=== PATIENT | female | born 1950 | race Caucasian/White ===

== ENCOUNTER 2021-12-06 16:17 | Inpatient (IN) ==
[2021-12-06 16:47] LABS: iSTAT Creatinine 0.6 mg/dl (0.6-1.3); iSTAT Hemoglobin 13.6 g/dl (12.0-16.0); iSTAT Ionized Calcium 1.14 mmol/l (1.12-1.32)
[2021-12-06 16:59] LABS: Hematocrit (blood only) 42.9 % (37-47); Hemoglobin 14.4 g/dL (12.0-16.0); Mean Corpuscular Hemoglobin 30.4 pg (25-34); Mean Corpuscular Hgb Conc 33.6 g/dL (32-36); Mean Corpuscular Volume 90.7 fL (80-100); RDW Coefficient of Variation 13.5 % (11.5-14.5); RDW Standard Deviation 44.7 fL (36.4-46.3); Red Blood Count 4.73 M/uL (4.2-5.4); White Blood Count 14.98 K/uL (4.8-10.8)
--- NOTE | 2021-12-06 17:00 | XRay Report ---
SINGLE VIEW CHEST CLINICAL HISTORY: Dyspnea. FINDINGS: An AP, portable, upright chest radiograph is obtained. No prior studies are available for c omparison at the time of dictation. The examination is mildly degraded by portable technique and suleiman ent rotation. The heart is enlarged noting atherosclerotic calcification of the thoracic aorta. The pulmonary vasculature is noncongested. Nonspecific interstitial thickening is likely chronic. There i s bibasilar scarring/atelectasis. No airspace consolidation or large pleural effusion is identified. No pneumothorax is seen. The skeletal structures are osteopenic. The bony thorax is grossly intact. A dvanced arthritic change is seen in the shoulders, right greater than left. IMPRESSION: Cardiomegaly with no acute cardiopulmonary abnormality. ACT 112: Negative or not required by law. Electronically signed by: Lucius Healy M.D. 12/06/2021 4:58 PM
[2021-12-06 17:06] LABS: Troponin I < 0.03 ng/ml (0-0.04)
[2021-12-06 17:07] LABS: Basophils # (auto) 0.03 K/uL (0-0.2); Basophils % (auto) 0.2 %; Eosinophils # (auto) 0.17 K/uL (0-0.5); Eosinophils % (auto) 1.1 %; Immature Granulocytes # (auto) 0.14 K/uL (0.00-0.02); Immature Granulocytes % (auto) 0.9 %; Lymphocytes # (auto) 2.58 K/uL (1.2-3.4); Lymphocytes % (auto) 17.2 %; Mean Platelet Volume 10.4 fL (7.4-10.4); Monocytes # (auto) 0.88 K/uL (0.11-0.59); Monocytes % (auto) 5.9 %; Neutrophils # (auto) 11.18 K/uL (1.4-6.5); Neutrophils % (auto) 74.7 %; Platelet Count 259 K/uL (130-400)
[2021-12-06] MEDS ORDERED: KETOROLAC TROMETHAMINE 15 MG/ML VIAL IV ONE (17:09)
[2021-12-06] MEDS ORDERED: SODIUM CHLORIDE 0.9% 1000ML 500 ML IV ONE (17:09)
[2021-12-06] MEDS ORDERED: ONDANSETRON INJ 2 MG/ML 2 ML VIAL IV STA (17:09)
--- NOTE | 2021-12-06 17:12 | Emergency Department Note ---
History of Present Illness General Chief complaint: Shortness of Breath/Dyspnea Stated complaint: SOB, Chest Pain Time Seen by Provider: 12/06/21 17:00 Source: patient Mode of arrival: ambulatory Limitations: no limitations History of Present Illness Maximum Pain Intensity: 7 This patient is a 71-year-old female who was sent over from [facility] after having right-sided chest pain and shortness of breath. She said the start around 5:00 in the morning she has been having trouble breathing it hurts when she breathes or moves. She has no history of similar she has been coughing with clear phlegm. She has had a COVID vaccine as well as the booster. The pain is worse with breathing or palpation. No trauma or injury. No fever or chills. She did have a recent ultrasound which showed no definite DVT however there was an isolated tibial vein thrombosis. Not on any anticoagulation and the plan was to get another ultrasound. Her right leg does hurt for the last month. She is had the COVID vaccine and booster. No abdominal pain. She has low back pain which is chronic and unchanged. no dysuria or hematuria. she has chronic issues with her intestines due to irritable bowel but nothing different. No blood or melena in her stool. She is on no blood thinner. Home Medications Medication Instructions Recorded Confirmed Type dicyclomine 20 mg tablet 20 mg PO Q6H 12/06/21 12/06/21 History escitalopram oxalate 10 mg tablet 10 mg PO DAILY 12/06/21 12/06/21 History multivitamin 1 tab PO QAM 12/06/21 12/06/21 History omeprazole 20 mg capsule,delayed 20 mg PO BID 12/06/21 12/06/21 History release rosuvastatin 20 mg tablet 20 mg PO DAILY 12/06/21 12/06/21 History Allergies Allergy/AdvReac Type Severity Reaction Status Date / Time No Known Allergies Allergy Unverified 12/06/21 16:46 Past Med/Surg History Social History Smoking Status: Current every day smoker Preferred Language: Palestinian Communication Ability: Effective Spiritual Care Coordinator Required: No Beliefs That Will Affect Care: None Current Living Situation: Family Other Information That Helps Us Care for You: No Feels Safe at Home: Yes Assistive Devices: None Review of Systems A total of 10 systems reviewed and were otherwise negative Physical Exam Vital Signs Vital Signs - 24 hr 12/06/21 16:33 12/06/21 16:39 12/06/21 17:54 Temperature 36.9 C Temperature Source Oral Pulse Rate 78 Pulse Rate [Right Finger] 76 Respiratory Rate 13 22 19 Respiratory Effort / Characteristics Labored Labored Non-Labored Respiratory Depth Normal Respiratory Pattern Regular Blood Pressure 127/78 Blood Pressure [Right Arm] 121/58 L Blood Pressure Mean 94 Blood Pressure Mean [Right Arm] 79 Pulse Oximetry 95 95 96 Oxygen Delivery Method Room Air Room Air Nasal Cannula Oxygen Flow Rate 2 Sepsis Recent Fever Within 48 Hours No Sepsis New/Unexplained Change in Mental Status N/A Sepsis Action Taken by Nursing No Action Required 12/06/21 18:19 12/06/21 19:17 Temperature Temperature Source Pulse Rate 80 Pulse Rate [Right Finger] 80 Respiratory Rate 19 24 Respiratory Effort / Characteristics Non-Labored Respiratory Depth Respiratory Pattern Blood Pressure Blood Pressure [Right Arm] 130/63 Blood Pressure Mean Blood Pressure Mean [Right Arm] 85 Pulse Oximetry 97 95 Oxygen Delivery Method Room Air Nasal Cannula Oxygen Flow Rate 2 2 Sepsis Recent Fever Within 48 Hours Sepsis New/Unexplained Change in Mental Status Sepsis Action Taken by Nursing General: Well developed well nourished older female who has pain with movement and palpation in no acute distress, breathing comfortably on room air. Normal speech HEENT: Normal cephalic atraumatic. Pupils are equal round and reactive to light. Extraocular movements are intact. Oropharynx is pink with moist mucous membranes. No swelling of the mouth lips or tongue. Neck: Supple with a midline trachea. No meningeal signs or stiffness, no JVD or bruits. No Stridor. Chest: Clear to auscultation bilaterally. No wheezes or rhonchi. No increased work of breathing. There is pain with movement and palpation in the right chest. No crepitus no rash no bruising Heart: Regular rate and rhythm without murmurs or gallops. Abdomen: Soft nontender, nondistended without rebound guarding or rigidity. Extremities: No cyanosis clubbing or edema. No calf tenderness or assymetry Spine/Back. Non tender to palpation. No CVA tenderness Skin: Good turgor without rashes. Neurologic exam: Cranial nerves two through 12 are intact. Motor and sensation are intact and symmetrical throughout. Course Administered Medications Amoxicillin/Clavulanate Potassium (Amoxicillin/Clavulanate 875 Mg Tab) 1 tab PO BIDM MIKI Stop: 12/13/21 22:52 Last Admin: 12/07/21 00:12 Dose: 1 tab Documented by: [id number] Heparin Sodium/Dextrose (Heparin Sodium/Dextrose) 25,000 units in 500 mls @ 19 mls/hr IV .Q24H MIKI; Protocol Stop: 01/05/22 18:59 Last Admin: 12/06/21 20:46 Dose: 950 units/hr, 19 mls/hr Documented by: [id number] Cosigned by: [id number] Sodium Chloride (Nss 1000ml) 1,000 mls @ 80 mls/hr IV .[id number] [facility] Stop: 12/07/21 11:22 Last Admin: 12/07/21 00:16 Dose: 80 mls/hr Documented by: [id number] Oxycodone HCl (Oxycodone Hcl Ir 5 Mg Tab (Immediate Release)) 5 mg PO Q4H PRN PRN Reason: Pain Stop: 12/20/21 22:52 Last Admin: 12/07/21 00:11 Dose: 5 mg Documented by: [id number] Pantoprazole Sodium (Pantoprazole 40 Mg Tab) 40 mg PO BID [facility] Stop: 01/05/22 22:52 Last Admin: 12/07/21 00:12 Dose: 40 mg Documented by: [id number] Discontinued Medications Heparin Sodium (Porcine) (Heparin Sod (Porcine) 1000 Unit/Ml) 1 units IV NOW ONE Stop: 12/06/21 18:55 Last Admin: 12/06/21 18:48 Dose: 4,000 units Documented by: [id number] Cosigned by: [id number] Heparin Sodium/Dextrose (Heparin Iv Adult Wt-Based Standard With Bolus Protocol) 1 ea IV NOW STA; Protocol Stop: 12/06/21 18:40 Last Admin: 12/06/21 20:47 Dose: Not Given Documented by: [id number] Sodium Chloride (Nss 1000ml) 500 mls @ 999 mls/hr IV .Q31M ONE Stop: 12/06/21 17:39 Last Infusion: 12/06/21 17:51 Dose: 0 mls/hr Documented by: [id number] Admin: 12/06/21 17:17 Dose: 999 mls/hr Documented by: [id number] Ioversol (Optiray 320 125ml) 120 ml IV ONCE ONE Stop: 12/06/21 17:38 Last Admin: 12/06/21 17:37 Dose: 120 ml Documented by: [id number] Ketorolac Tromethamine (Ketorolac Tromethamine 15 Mg/Ml Vial) 10 mg IV NOW ONE Stop: 12/06/21 17:10 Last Admin: 12/06/21 17:17 Dose: 10 mg Documented by: [id number] Ondansetron HCl (Ondansetron Inj 2 Mg/Ml 2 Ml Vial) 4 mg IV NOW STA Stop: 12/06/21 17:10 Last Admin: 12/06/21 17:17 Dose: 4 mg Documented by: [id number] Medical Decision Making Differential Diagnosis Pneumonia, Covid, PE, pneumothorax, electrolyte or metabolic abnormality, acute coronary syndrome, arrhythmia Medical Records Attestation: I reviewed the patient's medical records. Home Medications Current Medication List: was personally reviewed by me Laboratory Data Attestation: I reviewed the patient's lab results. Result diagrams: 12/06/21 16:28 12/06/21 17:46 Lab Results 12/06/21 12/06/21 12/06/21 Range/Units 16:28 16:28 16:28 WBC 14.98 H (4.8-10.8) K/uL RBC 4.73 (4.2-5.4) M/uL Hgb 14.4 (12.0-16.0) g/dL POC Hgb (12.0-16.0) g/dl Hct 42.9 (37-47) % POC Hct (37-47) % MCV 90.7 (80-100) fL MCH 30.4 (25-34) pg MCHC 33.6 (32-36) g/dL RDW Std Deviation 44.7 (36.4-46.3) fL RDW Coeff of Carol Ann 13.5 (11.5-14.5) % Plt Count 259 (130-400) K/uL MPV 10.4 (7.4-10.4) fL Immature Gran % (Auto) 0.9 % Neut % (Auto) 74.7 % Lymph % (Auto) 17.2 % Faulkner % (Auto) 5.9 % Eos % (Auto) 1.1 % Baso % (Auto) 0.2 % Neut # (Auto) 11.18 H (1.4-6.5) K/uL Lymph # (Auto) 2.58 (1.2-3.4) K/uL Faulkner # (Auto) 0.88 H (0.11-0.59) K/uL Eos # (Auto) 0.17 (0-0.5) K/uL Baso # (Auto) 0.03 (0-0.2) K/uL Immature Gran # (Auto) 0.14 H (0.00-0.02) K/uL PT Cancelled INR Cancelled APTT Cancelled PTT Ratio Cancelled POC Sodium (135-144) mmol/L Sodium (136-145) mmol/L POC Potassium (3.3-5.0) mmol/L Potassium POC Chloride (101-112) mmol/L Chloride (98-107) mmol/L Carbon Dioxide (21-32) mmol/L POC Total CO2 (24-31) mmol/L Anion Gap (3-11) POC Anion Gap (16-25) mmol/L POC BUN (7-18) mg/dl BUN (6-23) mg/dl Creatinine (0.6-1.2) mg/dl POC Creatinine (0.6-1.3) mg/dl Est Cr Clr Drug Dosing ml/min Est GFR ( Amer) ml/min Est GFR (Non-Af Amer) ml/min BUN/Creatinine Ratio (10-20) Glucose (70-99(Fasting)) mg/dl POC Glucose (other) (70-99) mg/dl Calcium (8.5-10.1) mg/dl POC Ioniz Calcium Gretel (1.12-1.32) mmol/l Magnesium (1.7-2.4) mg/dl Total Bilirubin (0.2-1.0) mg/dl AST ALT (7-52) U/L Alkaline Phosphatase (34-104) U/L Troponin I (0-0.04) ng/ml B-Natriuretic Peptide (0-100) pg/ml Total Protein (6.0-8.3) gm/dl Albumin (3.4-5.0) gm/dl Globulin (2.5-4.0) gm/dl Albumin/Globulin Ratio (0.9-2) SARS-CoV-2, RNA, NAAT NEGATIVE (NEGATIVE) 12/06/21 12/06/21 12/06/21 Range/Units 16:28 16:34 17:46 WBC (4.8-10.8) K/uL RBC (4.2-5.4) M/uL Hgb (12.0-16.0) g/dL POC Hgb 13.6 (12.0-16.0) g/dl Hct (37-47) % POC Hct 40 (37-47) % MCV (80-100) fL MCH (25-34) pg MCHC (32-36) g/dL RDW Std Deviation (36.4-46.3) fL RDW Coeff of Carol Ann (11.5-14.5) % Plt Count (130-400) K/uL MPV (7.4-10.4) fL Immature Gran % (Auto) % Neut % (Auto) % Lymph % (Auto) % Faulkner % (Auto) % Eos % (Auto) % Baso % (Auto) % Neut # (Auto) (1.4-6.5) K/uL Lymph # (Auto) (1.2-3.4) K/uL Faulkner # (Auto) (0.11-0.59) K/uL Eos # (Auto) (0-0.5) K/uL Baso # (Auto) (0-0.2) K/uL Immature Gran # (Auto) (0.00-0.02) K/uL PT 9.9 INR 1.0 APTT < 20.0 L PTT Ratio 0.8 POC Sodium 137 (135-144) mmol/L Sodium 136 (136-145) mmol/L POC Potassium 4.0 (3.3-5.0) mmol/L Potassium TNP POC Chloride 104 (101-112) mmol/L Chloride 103 (98-107) mmol/L Carbon Dioxide 21 (21-32) mmol/L POC Total CO2 24 (24-31) mmol/L Anion Gap 12 H (3-11) POC Anion Gap 14.0 L (16-25) mmol/L POC BUN 14 (7-18) mg/dl BUN 13 (6-23) mg/dl Creatinine 0.67 (0.6-1.2) mg/dl POC Creatinine 0.6 (0.6-1.3) mg/dl Est Cr Clr Drug Dosing 61.8 ml/min Est GFR ( Amer) 101.1 ml/min Est GFR (Non-Af Amer) 87.2 ml/min BUN/Creatinine Ratio 19.4 (10-20) Glucose 115 H (70-99(Fasting)) mg/dl POC Glucose (other) 123 H (70-99) mg/dl Calcium 9.1 (8.5-10.1) mg/dl POC Ioniz Calcium Gretel 1.14 (1.12-1.32) mmol/l Magnesium 2.0 (1.7-2.4) mg/dl Total Bilirubin 0.5 (0.2-1.0) mg/dl AST TNP ALT 21 (7-52) U/L Alkaline Phosphatase 58 (34-104) U/L Troponin I < 0.03 (0-0.04) ng/ml B-Natriuretic Peptide (0-100) pg/ml Total Protein 7.2 (6.0-8.3) gm/dl Albumin 4.1 (3.4-5.0) gm/dl Globulin 3.1 (2.5-4.0) gm/dl Albumin/Globulin Ratio 1.3 (0.9-2) SARS-CoV-2, RNA, NAAT (NEGATIVE) 12/06/21 12/06/21 Range/Units 17:46 17:46 WBC (4.8-10.8) K/uL RBC (4.2-5.4) M/uL Hgb (12.0-16.0) g/dL POC Hgb (12.0-16.0) g/dl Hct (37-47) % POC Hct (37-47) % MCV (80-100) fL MCH (25-34) pg MCHC (32-36) g/dL RDW Std Deviation (36.4-46.3) fL RDW Coeff of Carol Ann (11.5-14.5) % Plt Count (130-400) K/uL MPV (7.4-10.4) fL Immature Gran % (Auto) % Neut % (Auto) % Lymph % (Auto) % Faulkner % (Auto) % Eos % (Auto) % Baso % (Auto) % Neut # (Auto) (1.4-6.5) K/uL Lymph # (Auto) (1.2-3.4) K/uL Faulkner # (Auto) (0.11-0.59) K/uL Eos # (Auto) (0-0.5) K/uL Baso # (Auto) (0-0.2) K/uL Immature Gran # (Auto) (0.00-0.02) K/uL PT INR APTT PTT Ratio POC Sodium (135-144) mmol/L Sodium (136-145) mmol/L POC Potassium (3.3-5.0) mmol/L Potassium 3.5 POC Chloride (101-112) mmol/L Chloride (98-107) mmol/L Carbon Dioxide (21-32) mmol/L POC Total CO2 (24-31) mmol/L Anion Gap (3-11) POC Anion Gap (16-25) mmol/L POC BUN (7-18) mg/dl BUN (6-23) mg/dl Creatinine (0.6-1.2) mg/dl POC Creatinine (0.6-1.3) mg/dl Est Cr Clr Drug Dosing ml/min Est GFR ( Amer) ml/min Est GFR (Non-Af Amer) ml/min BUN/Creatinine Ratio (10-20) Glucose (70-99(Fasting)) mg/dl POC Glucose (other) (70-99) mg/dl Calcium (8.5-10.1) mg/dl POC Ioniz Calcium Gretel (1.12-1.32) mmol/l Magnesium (1.7-2.4) mg/dl Total Bilirubin (0.2-1.0) mg/dl AST 26 ALT (7-52) U/L Alkaline Phosphatase (34-104) U/L Troponin I (0-0.04) ng/ml B-Natriuretic Peptide 31 (0-100) pg/ml Total Protein (6.0-8.3) gm/dl Albumin (3.4-5.0) gm/dl Globulin (2.5-4.0) gm/dl Albumin/Globulin Ratio (0.9-2) SARS-CoV-2, RNA, NAAT (NEGATIVE) Imaging Data Attestation: I personally reviewed and interpreted this imaging study as follows: My Impression: Chest x-rayno acute infiltrate, failure, pneumothorax seen Radiologist's Impression: Chest X-Ray 12/06/21 16:38 SINGLE VIEW CHEST CLINICAL HISTORY: Dyspnea. FINDINGS: An AP, portable, upright chest radiograph is obtained. No prior studies are available for comparison at the time of dictation. The examination is mildly degraded by portable technique and patient rotation. The heart is enlarged noting atherosclerotic calcification of the thoracic aorta. The pulmonary vasculature is noncongested. Nonspecific interstitial thickening is likely chronic. There is bibasilar scarring/atelectasis. No airspace consolidation or large pleural effusion is identified. No pneumothorax is seen. The skeletal structures are osteopenic. The bony thorax is grossly intact. Advanced arthritic change is seen in the shoulders, right greater than left. IMPRESSION: Cardiomegaly with no acute cardiopulmonary abnormality. ACT 112: Negative or not required by law. Electronically signed by: Lucius Healy M.D. 12/06/2021 4:58 PM Chest CTA 12/06/21 17:09 CT ANGIOGRAM OF THE CHEST CLINICAL HISTORY: Dyspnea. COMPARISON STUDY: Chest x-ray dated 12/06/2021. TECHNIQUE: Following the IV administration of 120 cc of Optiray 320, CT angiogram of the chest was performed from the upper abdomen to the thoracic inlet utilizing the pulmonary embolus protocol. Images are reviewed in the axial, sagittal, and coronal planes. 3-D MIPS images are created and assessed. IV contrast was administered without complication. A dose lowering technique was utilized adhering to the principles of ALARA. CT DOSE: 287.21 mGy.cm FINDINGS: Thyroid: Imaged portions of the thyroid gland are normal in size and attenuation. Thoracic aorta: There is mild atherosclerotic calcification of the thoracic aorta, which is normal in caliber and demonstrates 4-vessel variant arch anatom y. No dissection is seen. Pulmonary vasculature: The pulmonary trunk is normal in caliber. There are segmental and subsegmental pulmonary emboli within branches of the right upper, right lower, and left lower lobe pulmonary arteries. Heart: The heart is enlarged and without pericardial effusion. The coronary arteries are densely calcified. Lungs and pleural spaces: Mild emphysematous change is noted. Wedge-shaped subp leural consolidation in the right upper lobe seen on image #132 is typical for a pulmonary infarct. Dependent consolidation is seen at both lung bases, right greater than left. No pleural effusion is identified. The trachea and central airways are clear. There are scattered calcified granulomas. Mediastinum: There is no mediastinal lymphadenopathy. Girsel: Clear. Axillae: There is no axillary lymphadenopathy. Upper abdomen: There is a small hiatal hernia. Hepatic cysts measure up to 1.6 cm. Skeletal structures: The skeletal structures are osteopenic. Degenerative change is noted in the shoulders and thoracic spine. There is a mild and chronic- appearing compression deformity of T8. No lytic or blastic bony lesions are seen. IMPRESSION: 1. There are segmental and subsegmental pulmonary emboli within branches of the right upper, right lower, and left lower lobe pulmonary arteries. 2. A focus of wedge-shaped subpleural consolidation in the right upper lobe is typical for a pulmonary infarct. 3. Dependent consolidation is seen at both lung bases, right greater than left. This could represent atelectasis, an infectious/inflammatory pneumonitis, and/or additional foci of pulmonary infarct. 4. No pleural effusion is identified. 5. Cardiomegaly with advanced coronary artery calcification. 6. Additional findings as above. ACT 112: Negative or not required by law. Electronically signed by: Lucius Healy M.D. 12/06/2021 5:48 PM ECG Data Attestation: I personally reviewed and interpreted this ECG as follows: Indication: + chest pain and + SOB/dyspnea Rate (beats per minute): 77 Rhythm: + normal sinus ECG Intervals/blocks: + Normal QRS, + Normal QT and + Normal IL ECG Opal: + Normal ECG ST segments: + Normal ST segments ECG Findings: no PACs or no PVCs Comparison ECG Date: from (08/26/98) Change: no significant change MDM Narrative This patient comes in as described above. She was placed on a cost control specialist room B9. She was sent over from [facility] outpatient clinic she has right-sided chest pain is pleuritic. Her EKG does not show any ischemic changes or ectopy. Covid testing was done and was negative. She was placed on a cost control specialist. Her initial chest x-ray does not show any findings to suggest congestive heart failure pneumonia or pneumothorax. Her pain is definitely reproducible upon breathing and moving in fact it got so bad she does have nausea with it. She did receive IV morphine and IV Zofran in route. I did order IV Toradol 10 mg as well as IV Zofran 4 mg. Her white count is elevated she is not anemic. Her i- STAT creatinine and BUN were normal so I did order a CTA to rule out PE particularly given her possible DVT recently. She was reassessed frequently. Troponin was normal. She has normal renal function. White count was mildly elevated. CT does show PEs on both sides of the lung. There is no central clot mentioned. She is hemodynamically stable. She may have an infarct related to this as well. I did discuss this with Dr. Ann from [facility] he did want a start her on regular heparin protocol with bolus and drip I ordered this. The patient has been on blood thinners before is not presently on and and she reports no previous problems. She has had no blood or melena stool or any recent trauma. She will be admitted for further treatment and evaluation. Continuous cardiac monitoring: Orders placed in EMR for continuous cardiac mon itor. [place] interpretation patient with known to be normal sinus rhythm rate of 70 Impression & Plan Bilateral pulmonary embolism, Chest pain, SOB (shortness of breath), Lab test negative for COVID-19 virus Discharge Plan Visit Data Chief Complaint: Shortness of Breath/Dyspnea Stated Complaint: SOB, Chest Pain ED Provider: Marcelo Luis Discharge Problem: Bilateral pulmonary embolism, Chest pain, SOB (shortness of breath), Lab test negative for COVID-19 virus Patient Disposition: Admitted As Inpatient Discharge Instructions Interventions: ED Discharge Assessment Last Done: 12/06/21 23:15 Discharge Problem: Chest pain Qualifiers: Chest pain type: unspecified Qualified Code(s): R07.9 - Chest pain, unspecified
[2021-12-06 17:20] LABS: Alanine Aminotransferase 21 U/L (7-52); Albumin Globulin Ratio 1.3 (0.9-2); Albumin Level 4.1 gm/dl (3.4-5.0); Alkaline Phosphatase 58 U/L (34-104); Anion Gap 12 (3-11); BUN Creatinine Ratio 19.4 (10-20); Bilirubin,Total 0.5 mg/dl (0.2-1.0); Blood Urea Nitrogen 13 mg/dl (6-23); Calcium 9.1 mg/dl (8.5-10.1); Carbon Dioxide 21 mmol/L (21-32); Chloride 103 mmol/L (98-107); Creatinine Clr Calc Pharmacy 61.8 ml/min; Est GFR (African American) 101.1 ml/min; Est GFR (Non-African American) 87.2 ml/min; Globulin 3.1 gm/dl (2.5-4.0); Glucose 115 mg/dl (70-99(Fasting)); Sodium 136 mmol/L (136-145); Total Protein 7.2 gm/dl (6.0-8.3)
[2021-12-06] MEDS ORDERED: OPTIRAY 320 125ml IV ONE (17:37)
--- NOTE | 2021-12-06 17:49 | CT Scan Report ---
CT ANGIOGRAM OF THE CHEST CLINICAL HISTORY: Dyspnea. COMPARISON STUDY: Chest x-ray dated 12/06/2021. TECHNIQUE: Following the IV administration of 120 cc of Optiray 320, CT angiogram of the chest was pe rformed from the upper abdomen to the thoracic inlet utilizing the pulmonary embolus protocol. Images are reviewed in the axial, sagittal, and coronal planes. 3-D MIPS images are created and assessed. I V contrast was administered without complication. A dose lowering technique was utilized adhering to the principles of ALARA. CT DOSE: 287.21 mGy.cm FINDINGS: Thyroid: Imaged portions of the thyroid gland are normal in size and attenuation. Thoracic aorta: There is mild atherosclerotic calcification of the thoracic aorta, which is normal in caliber and demonstrates 4-vessel variant arch anatomy. No dissection is seen. Pulmonary vasculature: The pulmonary trunk is normal in caliber. There are segmental and subsegmental pulmonary emboli within branches of the right upper, right lower, and left lower lobe pulmonary conchis santino. Heart: The heart is enlarged and without pericardial effusion. The coronary arteries are densely calc ified. Lungs and pleural spaces: Mild emphysematous change is noted. Wedge-shaped subpleural consolidation i n the right upper lobe seen on image #132 is typical for a pulmonary infarct. Dependent consolidation is seen at both lung bases, right greater than left. No pleural effusion is identified. The trachea and central airways are clear. There are scattered calcified granulomas. Mediastinum: There is no mediastinal lymphadenopathy. Grisel: Clear. Axillae: There is no axillary lymphadenopathy. Upper abdomen: There is a small hiatal hernia. Hepatic cysts measure up to 1.6 cm. Skeletal structures: The skeletal structures are osteopenic. Degenerative change is noted in the shou lders and thoracic spine. There is a mild and chronic-appearing compression deformity of T8. No lytic or blastic bony lesions are seen. IMPRESSION: 1. There are segmental and subsegmental pulmonary emboli within branches of the right upper, right lo wer, and left lower lobe pulmonary arteries. 2. A focus of wedge-shaped subpleural consolidation in the right upper lobe is typical for a pulmonar y infarct. 3. Dependent consolidation is seen at both lung bases, right greater than left. This could represent atelectasis, an infectious/inflammatory pneumonitis, and/or additional foci of pulmonary infarct. 4. No pleural effusion is identified. 5. Cardiomegaly with advanced coronary artery calcification. 6. Additional findings as above. ACT 112: Negative or not required by law. Electronically signed by: Lucius Healy M.D. 12/06/2021 5:48 PM
[2021-12-06 18:11] LABS: Partial Thromboplastin Ratio 0.8
[2021-12-06 18:31] LABS: Potassium 3.5 mmol/L (3.5-5.1)
[2021-12-06 18:33] LABS: Partial Thromboplastin Time < 20.0 Seconds (21.0-31.0)
[2021-12-06 18:35] LABS: Prothrombin Time 9.9 Seconds (9.0-12.0)
[2021-12-06] MEDS: Heparin IV Adult Wt-Based Standard WITH Bolus Protocol IV STA ×2 (18:49→20:47)
[2021-12-06] MEDS: HEPARIN SODIUM/DEXTROSE 25,000 UNITS/500 ML BAG IV SCH ×2 (18:49→20:46)
[2021-12-06] MEDS ORDERED: HEPARIN SOD (PORCINE) 1000 UNIT/ML IV ONE (18:54)
[2021-12-06] MEDS ORDERED: NITROGLYCERIN SL 0.4 MG/TAB TAB SL PRN (22:53)
[2021-12-06] MEDS ORDERED: SODIUM CHLORIDE 0.9% 1000ML 1,000 ML IV SCH (22:53)
[2021-12-06] MEDS ORDERED: DICYCLOMINE HCL 20 MG TAB PO PRN (22:53)
[2021-12-07] MEDS: oxyCODONE HCL IR 5 MG TAB (IMMEDIATE RELEASE) PO PRN ×3 (00:11→15:47)
[2021-12-07] MEDS: AMOXICILLIN/CLAVULANATE 875 MG TAB PO SCH ×3 (00:12→15:49)
[2021-12-07] MEDS: PANTOprazole 40 MG TAB PO SCH ×3 (00:12→21:46)
[2021-12-07 03:07] LABS: Partial Thromboplastin Ratio 2.3
[2021-12-07 03:20] LABS: Partial Thromboplastin Time 59.5 Seconds (21.0-31.0)
[2021-12-07 05:48] LABS: Basophils # (auto) 0.01 K/uL (0-0.2); Basophils % (auto) 0.1 %; Eosinophils # (auto) 0.12 K/uL (0-0.5); Eosinophils % (auto) 1.1 %; Hematocrit (blood only) 38.5 % (37-47); Hemoglobin 12.5 g/dL (12.0-16.0); Immature Granulocytes # (auto) 0.05 K/uL (0.00-0.02); Immature Granulocytes % (auto) 0.5 %; Lymphocytes # (auto) 1.82 K/uL (1.2-3.4); Lymphocytes % (auto) 16.4 %; Mean Corpuscular Hemoglobin 29.8 pg (25-34); Mean Corpuscular Hgb Conc 32.5 g/dL (32-36); Mean Corpuscular Volume 91.9 fL (80-100); Mean Platelet Volume 10.5 fL (7.4-10.4); Monocytes # (auto) 0.78 K/uL (0.11-0.59); Neutrophils # (auto) 8.33 K/uL (1.4-6.5); Neutrophils % (auto) 74.9 %; Platelet Count 201 K/uL (130-400); RDW Coefficient of Variation 13.7 % (11.5-14.5); RDW Standard Deviation 45.3 fL (36.4-46.3); Red Blood Count 4.19 M/uL (4.2-5.4); White Blood Count 11.11 K/uL (4.8-10.8)
[2021-12-07 06:08] LABS: BUN Creatinine Ratio 19.7 (10-20); Calcium 8.1 mg/dl (8.5-10.1); Creatinine Clr Calc Pharmacy 67.8 ml/min; Est GFR (African American) 104.2 ml/min; Est GFR (Non-African American) 89.9 ml/min; Magnesium 1.9 mg/dl (1.7-2.4); Potassium 3.4 mmol/L (3.5-5.1)
[2021-12-07 06:15] LABS: Partial Thromboplastin Ratio 2.7
--- NOTE | 2021-12-07 06:47 | Ultrasound Report ---
BILATERAL LOWER EXTREMITY VENOUS DOPPLER HISTORY: Pulmonary emboli. Screening study. b/p pe. dvt? COMPARISON STUDY: None. FINDINGS: Nonocclusive thrombus in the distal right popliteal vein. Thrombus is noted within the post erior tibial veins extending from the distal. Additional occlusive thrombus is noted in one of the du plicated anterior tibial veins. There is normal flow, compressibility, phasicity and augmentation of the left lower extremity deep ve nous structures. IMPRESSION: 1. Right lower extremity deep venous thrombi. 2. No left lower extremity DVT. ACT 112: Negative or not required by law. Electronically signed by: Jaciel Butt M.D. 12/07/2021 6:45 AM
[2021-12-07 06:54] LABS: Partial Thromboplastin Time 71.8 Seconds (21.0-31.0)
[2021-12-07] MEDS: ESCITALOPRAM OXALATE 10 MG TAB PO SCH (07:34)
[2021-12-07] MEDS: ROSUVASTATIN CALCIUM 20 MG TAB PO SCH (07:35)
[2021-12-07] MEDS: MULTIVITAMIN TAB PO SCH (07:35)
[2021-12-07] MEDS ORDERED: PERFLUTREN LIPID MICROSPHERE (DEFINITY) IV ONE (07:47)
[2021-12-07] MEDS ORDERED: POTASSIUM CHLORIDE CRTAB 20 MEQ TABCR PO STA (08:05)
--- NOTE | 2021-12-07 08:30 | History and Physical Report ---
DATE OF ADMISSION: 12/06/2021. CHIEF COMPLAINT: Chest pain and found to have PE. HISTORY OF PRESENT ILLNESS: This is a 71-year-old female with past medical history significant for hyperlipidemia, GERD, gastritis, general osteoarthritis, osteoporosis, tobacco use disorder, depression, who presents with chest pain and found to have PE. The patient says about 8 months ago she was diagnosed with left lower extremity DVT and she was on Eliquis for 6 months and stopped about 2 months ago. On 11/27, because of right lower extremity pain, she had a Doppler, which showed a tibial vein thrombosis. At that time, no femoral or popliteal deep vein thrombosis seen in her extremity, and at that time, decision was made to do a repeat Doppler in 2 weeks, but yesterday she was not feeling well and today morning when she woke up at 5:00 a.m., she was very short of breath and also had chest pain. The pain was more with taking deep breath. She went to PCP office and thought possibly PE, she was sent here and CT scan was showing bilateral PE, right upper and lower and left lower PE. Currently saturating okay on 2 liters. Denies any headache or dizziness. No blurred visions, no earache, no runny nose, no sore throat, no cough, no fever, no chills, no nausea, no vomiting, has some abdominal discomfort and diarrhea from her irritable bowel syndrome. No blood in stools or black stools. Normal bladder movements. Ambulates okay. The patient has significant family history of blood clots , mother and her aunt and cousin had blood clots. ALLERGIES: No known drug allergies. PAST MEDICAL HISTORY: As mentioned above. PAST SURGICAL HISTORY: Carpal tunnel surgery, colonoscopy, EGD, laparoscopic cholecystectomy, ligation of oviducts, right shoulder tendon repair of the arm, total hysterectomy, bladder tack procedure. MEDICATIONS: The patient is on dicyclomine 20 mg p.o. q.6 hours p.r.n., Lexapro 20 mg p.o. daily, multivitamin 1 tablet p.o. a.m., omeprazole 20 mg p.o. b.i.d., lovastatin 20 mg p.o. daily. FAMILY HISTORY: Significant for aunt has colon cancer, son has pancreatic cancer, grandmother had diabetes. SOCIAL HISTORY: , smokes half pack a day for last 25 years. No drug use. No alcohol use. REVIEW OF SYSTEMS: As per HPI. Rest of the review of systems is negative. PHYSICAL EXAMINATION: GENERAL: The patient is of moderate built, not in acute distress. VITAL SIGNS: Temperature 36.9, pulse 74, respiratory rate 24, blood pressure 130/63, oxygen 97% on room air. HEENT: Pupils equal, round and reactive to light. Oral mucosa moist. NECK: No JVD, no neck masses. CARDIOVASCULAR: S1 and S2 heard. Regular rate and rhythm. No murmur, no gallop. RESPIRATORY SYSTEM: Normal AP diameter. No accessory muscle use. No wheezing, no crackles. ABDOMEN: Soft, bowel sounds present, nontender, no distention. CENTRAL NERVOUS SYSTEM: Cranial nerves II through XII are grossly intact, nonfocal. EXTREMITIES: No edema, no erythema. LABORATORY DATA: WBC 14.9, hemoglobin 14.4, hematocrit 42.9, platelets 259. PT 9.9, INR 1, APTT less than 20. Sodium 136, potassium 3.5, chloride 103, bicarbonate 21, BUN 13, creatinine 0.6, serum glucose 115, calcium 9.1, magnesium 2, total bilirubin 0.5, AST 26, ALT 21, alkaline phosphatase 58. Troponin I less than 0.03. BNP 31. SARS-CoV-2 negative. IMAGING DATA: CTA of the chest: Segmental and subsegmental pulmonary emboli within the branches of the right upper and right lower and left lower lobe pulmonary arteries, a focus of wedge-shaped subpleural consolidation in the right upper lobe,correlate for pulmonary infarct. No pleural effusion is identified. Chest x-ray: Cardiomegaly with no acute cardiopulmonary findings. EKG: Normal sinus rhythm at a rate of 77, no acute ST-T changes seen. ASSESSMENT AND PLAN: This is a 71-year-old female who presents with bilateral pulmonary embolism. 1. Bilateral pulmonary embolism, history of left lower extremity deep venous thrombosis about 8 months ago and a couple of weeks ago on 11/27, she was found to have right tibial vein deep venous thrombosis. Currently, presents with bilateral pulmonary embolism. We will start on IV heparin. Follow echocardiogram and repeat Dopplers. Pain control. The patient has a cough with yellow phlegm and some infarction on the CAT scan. We will empirically treat her with a short course of Augmentin. Needs to follow up with primary care physician and may need long-term anticoagulation. The patient may need novel anticoagulants prior to discharge. 2. History of depression: Continue Lexapro. 3. Hyperlipidemia: Continue statin. 4. Gastroesophageal reflux disease: Continue omeprazole. 5. Irritable bowel syndrome: Continue with dicyclomine p.r.n. 6. Tobacco use disorder: Needs counseling. 7. Deep venous thrombosis prophylaxis: IV heparin. DISPOSITION: Admit to med tele. PT/OT prior to discharge. Social service to help with discharge planning. Job ID: [id number] [facility] [place] DIVISIONHipolito
[2021-12-07] MEDS: ACETAMINOPHEN 325 MG TAB PO PRN (08:45)
[2021-12-07] MEDS: LIDOCAINE 5% 1 PATCH TD SCH (10:01)
--- NOTE | 2021-12-07 11:15 | Electrocardiogram Report ---
Test Reason : Blood Pressure : / mmHG Vent. Rate : 077 BPM Atrial Rate : 077 BPM P-R Int : 132 ms QRS Dur : 084 ms QT Int : 380 ms P-R-T Axes : 038 -21 027 degrees QTc Int : 430 ms Normal sinus rhythm Normal ECG When compared with ECG of 26-AUG-1998 09:34, T wave amplitude has decreased in Anterior leads Confirmed by Jagdish Llanos ([id number]) on 12/07/2021 11:14:52 AM Referred By: REFERRED SELF Confirmed By:Jagdish Llanos
[2021-12-07 14:31] LABS: Partial Thromboplastin Ratio 3.2
[2021-12-07 14:41] LABS: Partial Thromboplastin Time 82.9 Seconds (21.0-31.0)
--- NOTE | 2021-12-07 18:49 | Hospitalist Progress Note ---
Date of Service December 07, 2021 Assessment & Plan (1) Bilateral pulmonary embolism: (2) DVT (deep venous thrombosis): Plan: ASSESSMENT AND PLAN: This is a 71-year-old female who presents with bilateral pulmonary embolism. 1. Acute Bilateral pulmonary embolism history of left lower extremity deep venous thrombosis about 8 months ago Status post Eliquis x 6 months Apparently unprovoked DVT 11/27 (+) right tibial vein deep venous thrombosis Presenting now with chest pain, shortness of breath CT chest: 1. There are segmental and subsegmental pulmonary emboli within branches of the right upper, right lower, and left lower lobe pulmonary arteries. 2. A focus of wedge-shaped subpleural consolidation in the right upper lobe is typical for a pulmonary infarct. 3. Dependent consolidation is seen at both lung bases, right greater than left. This could represent atelectasis, an infectious/inflammatory pneumonitis, and/or additional foci of pulmonary infarct. 4. No pleural effusion is identified. Patient remains on 2 L of oxygen BP stable Continue IV heparin drip Possible transition to NOAC tomorrow Pain control, incentive spirometry Pulmonary service consulted, appreciate recommendations 2. History of depression: Continue Lexapro. 3. Hyperlipidemia: Continue statin. 4. Gastroesophageal reflux disease: Continue omeprazole. 5. Irritable bowel syndrome: Continue with dicyclomine p.r.n. 6. Tobacco use disorder: Needs counseling. 7. Deep venous thrombosis prophylaxis: IV heparin. Disposition Anticipate discharge to home medically stable PT/OT evaluation ordered Admission and Anticipated Discharge Date Admission Date: December 06, 2021 Subjective Follow-up for bilateral pulmonary embolism, etc. Seen resting in bed, patient having nausea No abdominal pain, having loose BMs but chronic as per patient No fevers or chills Still having chest pain with inspiration Some dyspnea No bleeding No other symptoms Review of Systems Review of Systems: all noted and negative except for above Physical Exam Physical Exam: General- oriented x 3, not in distress, speaks in sentences with no effort or accessory muscle use Eyes- anicteric Neck- no JVD Lungs-poor inspiratory effort secondary to pain Clear otherwise Heart- normal rate, regular rhythm; no murmurs Abdomen- normal bowel sounds, nondistended, soft, nontender Extremities- no pretibial edema, no calf tenderness Neuro- alert, oriented x 3; no gross focal neurologic deficits Skin- warm & dry Results & Data Results & Data ([facility]) Vital Signs (Past 12 Hours) Vital Signs Temp Pulse Resp BP Pulse Ox 12/07/21 15:28 37.2 C 62 18 104/67 93 12/07/21 12:11 37.0 C 60 18 104/62 93 12/07/21 07:55 36.5 C 62 18 95/61 L 96 all noted and reviewed including below
[2021-12-07 21:01] LABS: Partial Thromboplastin Ratio 3.1
[2021-12-07 21:14] LABS: Partial Thromboplastin Time 82.4 Seconds (21.0-31.0)
[2021-12-07] MEDS: HEPARIN SODIUM/DEXTROSE 25,000 UNITS/500 ML BAG IV SCH (21:45)
[2021-12-08] MEDS: oxyCODONE HCL IR 5 MG TAB (IMMEDIATE RELEASE) PO PRN ×3 (03:10→17:37)
[2021-12-08 03:52] LABS: Partial Thromboplastin Ratio 2.9
[2021-12-08] MEDS: PANTOprazole 40 MG TAB PO SCH ×2 (07:42→19:41)
[2021-12-08] MEDS: AMOXICILLIN/CLAVULANATE 875 MG TAB PO SCH ×2 (07:42→17:38)
[2021-12-08] MEDS: MULTIVITAMIN TAB PO SCH (07:42)
[2021-12-08] MEDS: ESCITALOPRAM OXALATE 10 MG TAB PO SCH (07:42)
[2021-12-08] MEDS: ROSUVASTATIN CALCIUM 20 MG TAB PO SCH (07:43)
[2021-12-08] MEDS: LIDOCAINE 5% 1 PATCH TD SCH (07:43)
[2021-12-08] MEDS ORDERED: POTASSIUM CHLORIDE CRTAB 20 MEQ TABCR PO STA (09:03)
[2021-12-08] MEDS: ONDANSETRON INJ 2 MG/ML 2 ML VIAL IV PRN (10:10)
[2021-12-08 11:43] LABS: Partial Thromboplastin Ratio 2.3
[2021-12-08 11:45] LABS: Partial Thromboplastin Time 61.2 Seconds (21.0-31.0)
--- NOTE | 2021-12-08 12:49 | Pulmonary Consultation ---
Date of Consultation December 08, 2021 Assessment & Plan (1) Bilateral pulmonary embolism: (2) SOB (shortness of breath): CT chest 12/06/2021 personally reviewed: Biapical scarring Bilateral pulmonary emboli Right upper lobe wedge-shaped groundglass opacity likely representing pulmonary infarct Dependent rectus bilateral lower lobes 2D echo 12/07/2021: EF 60-65%, mild aortic valve sclerosis, mild MR, right ventricle normal in size, no pulmonary hypertension --Acute PE With right lower extremity DVT 2D echo does not show any right ventricular strain No indication for TPA Continue with heparin drip and transition to DOACs --Acute hypoxic respiratory failure Secondary to PE Plan as above --COPD with active smoker PFTs as an outpatient in couple of months Advised to quit smoking Plan: Continue heparin drip. Transition to p.o. anticoagulation Patient likely has infarct of the right upper lobe on the periphery Incentive spirometry with pain medication will be beneficial Please note the above document was generated using voice recognition software. It may contain grammatical, syntax or spelling errors.Any formal questions or concerns about the content, text or information contained within the body of this dictation should be directly addressed to the provider for clarification. History of Present Illness Attending Physician: Magdi Rivera MD History of Present Illness 71-year-old female presented to the hospital with complaints of chest pain or shortness of breath Past medical history: Dyslipidemia, gastritis, osteoporosis, depression, history of DVT in the left lower extremity back in July 2021 Patient had a CTA chest done which showed bilateral PE. Pulmonary consulted for the same. At the time of examination patient said that she is feeling better compared to when she came to the hospital. She has been having issues with shortness of breath which has been going on since last couple of days. She went to the primary doctor to have Doppler of the right lower extremity done as she was having pain in the right lower extremity but given that she was so short of breath she was sent to the ED She does complain of chest pain especially on the right side and it is worse when she takes deep breath Has been coughing but not bringing up any phlegm. Denies any chest pain, no fever or chills. No history of Covid-19. Patient has been vaccinated against COVID-19. Denies any fever or chills. No dysuria, no diarrhea Social history: [id number] smoking history, currently smoking a pack a day. Used to work in [employer] Lung cancer. Sister had lung cancer was a smoker Strong family history of blood clots. Allergies Allergy/AdvReac Type Severity Reaction Status Date / Time No Known Allergies Allergy Unverified 12/06/21 16:46 Home Medications Medication Instructions Recorded Confirmed Type dicyclomine 20 mg tablet 20 mg PO Q6H 12/06/21 12/06/21 History escitalopram oxalate 10 mg tablet 10 mg PO DAILY 12/06/21 12/06/21 History multivitamin 1 tab PO QAM 12/06/21 12/06/21 History omeprazole 20 mg capsule,delayed 20 mg PO BID 12/06/21 12/06/21 History release rosuvastatin 20 mg tablet 20 mg PO DAILY 12/06/21 12/06/21 History Patient History Social History Smoking Status: Current every day smoker Preferred Language: Armenian Communication Ability: Effective Adult Daycare Coordinator Required: No Beliefs That Will Affect Care: None marital status: Current Living Situation: Family How many Children do You have: 2 Other Information That Helps Us Care for You: No Feels Safe at Home: Yes Assistive Devices: Denture - Upper, Denture - Lower and Glasses Review of Systems Review of Systems: All systems reviewed & are unremarkable except as noted in HPI & below Physical Exam Physical Exam: Constitutional: No acute distress HEENT: EOMI, PERRLA Respiratory system: Decreased air entry bilaterally, no wheeze, no rhonchi, positive crackles bilaterally CVS: S1-S2 positive, no murmurs or gallops Abdomen: Soft, nontender, nondistended, positive bowel sounds x4 Extremities: +2 pulses bilaterally radialis/ dorsalis pedis, no cyanosis, no edema Neuro: Awake alert oriented x3 Psych: Normal mood and affect G/U: No [place] Skin: no rashes, warm and dry Lymphatic: no cervical or axillary lymphadenopathy Results & Data Results & Data ([facility]) Vital Signs (Past 12 Hours) Vital Signs Temp Pulse Pulse Pulse Resp BP Pulse Ox 12/08/21 10:29 37.0 C 65 24 120/64 94 12/08/21 07:31 36.7 C 62 18 118/58 L 93 12/08/21 07:27 37.0 C 65 24 110/55 L 94 12/08/21 03:11 36.8 C 66 18 136/80 93 12/08/21 02:11 69 Laboratory Results 12/09/21 07:36 12/09/21 07:40 PG Care Time/CCT Total # of Minutes Spent Total Time Spent with Patient: Total time spent is greater than 50% in coordination of care (as documented) at patient's floor/unit and/or counseling patient: [place] [address] Initial Inpt Care Lvl 3 Patient Type New Diagnoses Bilateral pulmonary embolism I26.99 SOB (shortness of breath) R06.02
[2021-12-08] MEDS: ACETAMINOPHEN 325 MG TAB PO PRN (22:28)
[2021-12-08] MEDS ORDERED: SIMETHICONE 80 MG CHEW PO PRN (22:31)
[2021-12-09] MEDS: MoRPHine SULFATE 4 MG/ML 1 ML CARP\\VIAL IV PRN ×2 (05:38→14:06)
[2021-12-09] MEDS: HEPARIN SODIUM/DEXTROSE 25,000 UNITS/500 ML BAG IV SCH (05:42)
[2021-12-09] MEDS: SIMETHICONE 80 MG CHEW PO PRN ×2 (05:42→19:48)
[2021-12-09] MEDS: LIDOCAINE 5% 1 PATCH TD SCH (07:54)
[2021-12-09] MEDS: ESCITALOPRAM OXALATE 10 MG TAB PO SCH (07:55)
[2021-12-09] MEDS: MULTIVITAMIN TAB PO SCH (07:55)
[2021-12-09] MEDS: AMOXICILLIN/CLAVULANATE 875 MG TAB PO SCH ×2 (07:55→16:08)
[2021-12-09] MEDS: PANTOprazole 40 MG TAB PO SCH ×2 (07:55→19:49)
[2021-12-09] MEDS: ROSUVASTATIN CALCIUM 20 MG TAB PO SCH (07:56)
[2021-12-09 08:37] LABS: Basophils # (auto) 0.02 K/uL (0-0.2); Basophils % (auto) 0.2 %; Eosinophils # (auto) 0.26 K/uL (0-0.5); Eosinophils % (auto) 3.2 %; Hematocrit (blood only) 38.7 % (37-47); Hemoglobin 12.7 g/dL (12.0-16.0); Immature Granulocytes # (auto) 0.04 K/uL (0.00-0.02); Immature Granulocytes % (auto) 0.5 %; Lymphocytes # (auto) 1.72 K/uL (1.2-3.4); Lymphocytes % (auto) 21.1 %; Mean Corpuscular Hemoglobin 30.1 pg (25-34); Mean Corpuscular Hgb Conc 32.8 g/dL (32-36); Mean Corpuscular Volume 91.7 fL (80-100); Mean Platelet Volume 10.3 fL (7.4-10.4); Monocytes # (auto) 0.43 K/uL (0.11-0.59); Monocytes % (auto) 5.3 %; Neutrophils # (auto) 5.68 K/uL (1.4-6.5); Neutrophils % (auto) 69.7 %; Platelet Count 215 K/uL (130-400); RDW Coefficient of Variation 13.5 % (11.5-14.5); Red Blood Count 4.22 M/uL (4.2-5.4); White Blood Count 8.15 K/uL (4.8-10.8)
[2021-12-09 08:43] LABS: Partial Thromboplastin Time 51.5 Seconds (21.0-31.0)
[2021-12-09 09:01] LABS: BUN Creatinine Ratio 12.7 (10-20); Calcium 8.8 mg/dl (8.5-10.1); Creatinine Clr Calc Pharmacy 73.9 ml/min; Est GFR (African American) 107.8 ml/min; Est GFR (Non-African American) 93.1 ml/min; Potassium 3.7 mmol/L (3.5-5.1)
--- NOTE | 2021-12-09 13:42 | Hospitalist Progress Note ---
Date of Service December 09, 2021 Assessment & Plan (1) Bilateral pulmonary embolism: (2) DVT (deep venous thrombosis): Plan: ASSESSMENT AND PLAN: This is a 71-year-old female who presents with bilateral pulmonary embolism. 1. Acute Bilateral pulmonary embolism history of left lower extremity deep venous thrombosis about 8 months ago Status post Eliquis x 6 months Apparently, initial episode was unprovoked DVT 11/27: (+) right tibial vein deep venous thrombosis Presenting now with chest pain, shortness of breath CT chest: 1. There are segmental and subsegmental pulmonary emboli within branches of the right upper, right lower, and left lower lobe pulmonary arteries. 2. A focus of wedge-shaped subpleural consolidation in the right upper lobe is typical for a pulmonary infarct. 3. Dependent consolidation is seen at both lung bases, right greater than left. This could represent atelectasis, an infectious/inflammatory pneumonitis, and/or additional foci of pulmonary infarct. 4. No pleural effusion is identified. Patient remains on 2 L of oxygen BP stable still having chest pain, breathing improving Continue IV heparin drip, Possible transition to NOAC tomorrow Pain control, incentive spirometry Pulmonary service consulted, appreciate recommendations 2. History of depression: Continue Lexapro. 3. Hyperlipidemia: Continue statin. 4. Gastroesophageal reflux disease: Continue omeprazole. 5. Irritable bowel syndrome: Continue with dicyclomine p.r.n. 6. Tobacco use disorder: Needs counseling. 7. Deep venous thrombosis prophylaxis: IV heparin. Disposition Anticipate discharge to home medically stable PT/OT evaluation ordered Admission and Anticipated Discharge Date Admission Date: December 06, 2021 Subjective ff up for acute bilateral PE, etc seen resting in bed, comfortable on 2 L NC not in distress states she feels somewhat better today breathing is improving, still having chest pain- relieved by analgesics no bleeding nausea has resolved diarrhea also resolving no other symptoms Review of Systems Review of Systems: all noted and negative except for above Physical Exam Physical Exam: General- oriented x 3, not in distress, speaks in sentences with no effort or accessory muscle use Eyes- anicteric Neck- no JVD Lungs- clear breath sounds bilaterally, no wheezing mild rales at the bases Heart- normal rate, regular rhythm; no murmurs Abdomen- normal bowel sounds, nondistended, soft, nontender Extremities- no pretibial edema, no calf tenderness Neuro- alert, oriented x 3; no gross focal neurologic deficits Skin- warm & dry Results & Data Results & Data ([facility]) Vital Signs (Past 12 Hours) Vital Signs Temp Pulse Pulse Resp BP BP Pulse Ox 12/09/21 11:20 36.5 C 59 L 18 130/68 97 12/09/21 07:11 36.9 C 58 L 20 107/54 L 95 12/09/21 07:05 54 L 12/09/21 03:12 36.5 C 55 L 18 102/50 L 95 all noted and reviewed including below
--- NOTE | 2021-12-09 15:58 | Pulmonology Progress Note ---
Date of Service December 09, 2021 Assessment & Plan (1) Bilateral pulmonary embolism: (2) SOB (shortness of breath): Plan: CT chest 12/06/2021 personally reviewed: Biapical scarring Bilateral pulmonary emboli Right upper lobe wedge-shaped groundglass opacity likely representing pulmonary infarct Dependent rectus bilateral lower lobes 2D echo 12/07/2021: EF 60-65%, mild aortic valve sclerosis, mild MR, right ventricle normal in size, no pulmonary hypertension --Acute PE Second episode With right lower extremity DVT 2D echo does not show any right ventricular strain No indication for TPA Continue with heparin drip and transition to DOACs --Acute hypoxic respiratory failure Secondary to PE Plan as above --COPD with active smoker PFTs as an outpatient in couple of months Advised to quit smoking Plan: Can transition heparin to p.o. anticoagulation Would recommend lifelong anticoagulation as there is positive family history and this is her second episode We will repeat CT chest in 6-8 weeks to see if the infarct has resolved Continue with pain medication incentive spirometry Incruse inhaler added to be used on a daily basis No further recommendation from pulmonary perspective. Please call directly with any questions Please note the above document was generated using voice recognition software. It may contain grammatical, syntax or spelling errors.Any formal questions or concerns about the content, text or information contained within the body of this dictation should be directly addressed to the provider for clarification. Admission and Anticipated Discharge Date Admission Date: December 06, 2021 Subjective Patient seen and examined at bedside. No acute distress, no adverse events overnight Patient says she is doing better compared to yesterday Still complaining of right-sided pleuritic chest pain Has been using incentive spirometry and asking for pain meds as needed Good appetite. No hematuria, no hemoptysis, no epistaxis Review of Systems Review of Systems: All systems reviewed & are unremarkable except as noted in Subjective Physical Exam Physical Exam: Constitutional: No acute distress HEENT: EOMI, PERRLA Respiratory system: Decreased air entry bilaterally, no wheeze, no rhonchi, positive crackles bilaterally CVS: S1-S2 positive, no murmurs or gallops Abdomen: Soft, nontender, nondistended, positive bowel sounds x4 Extremities: +2 pulses bilaterally radialis/ dorsalis pedis, no cyanosis, no edema Neuro: Awake alert oriented x3 Psych: Normal mood and affect G/U: No [place] Skin: no rashes, warm and dry Lymphatic: no cervical or axillary lymphadenopathy Results & Data Results & Data ([facility]) Vital Signs (Past 12 Hours) Vital Signs Temp Pulse Pulse Resp BP BP Pulse Ox 12/09/21 15:51 37.4 C 64 18 111/65 94 12/09/21 11:20 36.5 C 59 L 18 130/68 97 12/09/21 07:11 36.9 C 58 L 20 107/54 L 95 12/09/21 07:05 54 L Laboratory Results 12/09/21 07:36 12/09/21 07:40 PG Care Time/CCT Total # of Minutes Spent Total Time Spent with Patient: Total time spent is greater than 50% in coordination of care (as documented) at patient's floor/unit and/or counseling patient: Coding Level of Care Code 57053 Subseq Hosp Care Lvl 2 Diagnoses Bilateral pulmonary embolism I26.99 SOB (shortness of breath) R06.02
[2021-12-09] MEDS: UMECLIDINIUM BROMIDE 62.5MCG/BLISTER 7 PUFFS/INHALER INH SCH (17:11)
[2021-12-09] MEDS: oxyCODONE HCL IR 5 MG TAB (IMMEDIATE RELEASE) PO PRN (22:08)
[2021-12-10] MEDS: MoRPHine SULFATE 4 MG/ML 1 ML CARP\\VIAL IV PRN (05:21)
[2021-12-10] MEDS: ONDANSETRON INJ 2 MG/ML 2 ML VIAL IV PRN (06:43)
[2021-12-10 07:21] LABS: Basophils # (auto) 0.03 K/uL (0-0.2); Basophils % (auto) 0.3 %; Eosinophils % (auto) 3.3 %; Hematocrit (blood only) 42.9 % (37-47); Hemoglobin 14.2 g/dL (12.0-16.0); Immature Granulocytes # (auto) 0.05 K/uL (0.00-0.02); Immature Granulocytes % (auto) 0.6 %; Lymphocytes # (auto) 1.79 K/uL (1.2-3.4); Lymphocytes % (auto) 19.9 %; Mean Corpuscular Hemoglobin 29.9 pg (25-34); Mean Corpuscular Hgb Conc 33.1 g/dL (32-36); Mean Corpuscular Volume 90.3 fL (80-100); Mean Platelet Volume 10.1 fL (7.4-10.4); Monocytes # (auto) 0.46 K/uL (0.11-0.59); Monocytes % (auto) 5.1 %; Neutrophils # (auto) 6.37 K/uL (1.4-6.5); Neutrophils % (auto) 70.8 %; Platelet Count 250 K/uL (130-400); RDW Coefficient of Variation 13.3 % (11.5-14.5); RDW Standard Deviation 43.8 fL (36.4-46.3); Red Blood Count 4.75 M/uL (4.2-5.4)
[2021-12-10 07:44] LABS: BUN Creatinine Ratio 15.4 (10-20); Calcium 9.4 mg/dl (8.5-10.1); Creatinine Clr Calc Pharmacy 62.2 ml/min; Est GFR (African American) 102.1 ml/min; Est GFR (Non-African American) 88.1 ml/min; Partial Thromboplastin Ratio 1.7; Potassium 3.5 mmol/L (3.5-5.1)
[2021-12-10 07:54] LABS: Partial Thromboplastin Time 45.2 Seconds (21.0-31.0)
[2021-12-10] MEDS: MULTIVITAMIN TAB PO SCH (08:04)
[2021-12-10] MEDS: PANTOprazole 40 MG TAB PO SCH ×2 (08:04→20:28)
[2021-12-10] MEDS: ESCITALOPRAM OXALATE 10 MG TAB PO SCH (08:04)
[2021-12-10] MEDS: ROSUVASTATIN CALCIUM 20 MG TAB PO SCH (08:04)
[2021-12-10] MEDS: AMOXICILLIN/CLAVULANATE 875 MG TAB PO SCH ×2 (08:04→16:45)
[2021-12-10] MEDS: UMECLIDINIUM BROMIDE 62.5MCG/BLISTER 7 PUFFS/INHALER INH SCH (08:05)
[2021-12-10] MEDS: LIDOCAINE 5% 1 PATCH TD SCH (08:05)
--- NOTE | 2021-12-10 11:13 | Hospitalist Progress Note ---
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 Also with a family history of blood clot that killed her mother at the age of 48 yo, was present in her sister and her nephew. With ongoing chest pain and BAKER, cont heparin for now. Try to use the oral narcotics, but IV available if needed. Has been using parenteral narcotics overnight. Cont transdermal lidocaine patch for now as she says this help her. Plan to transition to apixaban when more improved. Out patient follow-up with hematology recommended. (2) Bilateral pneumonia: Plan: dependent consolidation at the lung bases bilaterally. Patient reported productive cough on admission with yellowish phlegm. Given and improved on a short course of Augmentin. (3) DVT (deep venous thrombosis): Plan: 2. History of depression: chronic, stable, Continue Lexapro per home regimen. 3. Hyperlipidemia: chronic, stable. Continue statin per home regimen. 4. Gastroesophageal reflux disease: chronic, stable, Continue omeprazole per home regimen. 5. Irritable bowel syndrome: Continue with dicyclomine p.r.n. 6. Tobacco use disorder: Cont counseling to quit altogether. 7. Deep venous thrombosis prophylaxis: IV heparin. Dispo-to home in 1-2 days Full Code [facility] Admission and Anticipated Discharge Date Admission Date: December 06, 2021 Subjective 71 yo F hospitalized for bilateral PE and acute DVT of uncertain origin. Also with pulmonary infarction on imaging. She reports an improvement but still with acute chest pain requiring IV narcotics overnight Reports dyspnea on exertion that is improved but again still present. Still remains hypoxia--96% on 2LPM She is otherwise doing well, denies leg pain or swelling Tolerating PO, denies fevers. Review of Systems Review of Systems: All systems were reviewed and negative except as indicated on subjective above. Physical Exam Physical Exam: CONSTITUTIONAL: WNWD, vitals as above, generally well- appearing, NAD EYES: normal conjunctivae, no scleral icterus ENT: external ear and nose normal, NECK: trachea midline RESPIRATORY: clear to auscultation bilaterally, no crackles, rales or wheezes, normal respiratory effort. Clearly causes pain to take deep breaths. CARDIOVASCULAR: regular rate and rhythm, S1 and 2 heard without murmurs, gallops or rubs, no JVD, no peripheral edema CHEST: inspection of chest was normal GASTROINTESTINAL: soft, nontender, ND, no guarding MUSCULOSKELETAL: strength 5/5 throughout, head is normocephalic and atraumatic, SKIN: warm and dry, NEUROLOGIC: CN 2-12 grossly intact, no sensory deficit, normal cognition, normal speech, no tremor PSYCHIATRIC: alert cooperative and oriented to person, place and time. Euthymic mood, makes good eye contact, language grossly intact, recent and remote memory grossly intact. Results & Data Results & Data ([facility]) Vital Signs (Past 12 Hours) Vital Signs Temp Pulse Pulse Resp BP Pulse Ox 12/10/21 07:45 36.7 C 66 18 106/55 L 96 12/10/21 06:17 65 12/10/21 03:31 36.8 C 60 20 93/55 L 93 Laboratory Results Short CBC 12/10/21 Range/Units 07:03 WBC 9.00 (4.8-10.8) K/uL Hgb 14.2 (12.0-16.0) g/dL Hct 42.9 (37-47) % Plt Count 250 (130-400) K/uL BMP 12/10/21 07:03 Sodium 139 Potassium 3.5 Chloride 104 Carbon Dioxide 26 BUN 10 Creatinine 0.65 Glucose 106 H Calcium 9.4 Medications Administered Current Inpatient Medications Acetaminophen (Acetaminophen 325 Mg Tab) 650 mg PO Q4H PRN PRN Reason: Pain or Fever Stop: 01/05/22 22:52 Last Admin: 12/08/21 22:28 Dose: 650 mg Documented by: Amoxicillin/Clavulanate Potassium (Amoxicillin/Clavulanate 875 Mg Tab) 1 tab PO BIDM [facility] Stop: 12/13/21 22:52 Last Admin: 12/10/21 08:04 Dose: 1 tab Documented by: Dicyclomine HCl (Dicyclomine Hcl 20 Mg Tab) 20 mg PO Q6H PRN PRN Reason: Diarrhea Stop: 01/05/22 22:52 Escitalopram Oxalate (Escitalopram Oxalate 10 Mg Tab) 10 mg PO DAILY [facility] Stop: 01/06/22 08:59 Last Admin: 12/10/21 08:04 Dose: 10 mg Documented by: Heparin Sodium/Dextrose (Heparin Sodium/Dextrose) 25,000 units in 500 mls @ 16 mls/hr IV .Q24H [facility]; Protocol Stop: 01/05/22 18:59 Last Titration: 12/10/21 07:59 Dose: 800 units/hr, 16 mls/hr Documented by: Lidocaine (Lidocaine 5% 1 Patch) 1 [facility] Stop: 01/06/22 09:44 Last Admin: 12/10/21 08:05 Dose: 1 patch Documented by: Miscellaneous (Remove Lidoderm Patch) 1 ea N/A DAILY@2100 [facility] Stop: 01/06/22 20:59 Last Admin: 12/09/21 21:55 Dose: 1 ea Documented by: Morphine Sulfate (Morphine Sulfate 4 Mg/Ml 1 Ml Carp\Vial) 3 mg IV Q4H PRN PRN Reason: Severe Pain Stop: 12/21/21 18:21 Last Admin: 12/10/21 05:21 Dose: 3 mg Documented by: Multivitamins (Multivitamin Tab) 1 tab PO [facility] Stop: 01/06/22 08:59 Last Admin: 12/10/21 08:04 Dose: 1 tab Documented by: Nitroglycerin (Nitroglycerin Sl 0.4 Mg/Tab Tab) 0.4 mg SL UD PRN PRN Reason: Chest Pain Stop: 01/05/22 22:52 Ondansetron HCl (Ondansetron Inj 2 Mg/Ml 2 Ml Vial) 4 mg IV Q6H PRN PRN Reason: Nausea Stop: 01/05/22 22:52 Last Admin: 12/10/21 06:43 Dose: 4 mg Documented by: Oxycodone HCl (Oxycodone Hcl Ir 5 Mg Tab (Immediate Release)) 5 mg PO Q4H PRN PRN Reason: Pain Stop: 12/20/21 22:52 Last Admin: 12/09/21 22:08 Dose: 5 mg Documented by: Pantoprazole Sodium (Pantoprazole 40 Mg Tab) 40 mg PO BID [facility] Stop: 01/05/22 22:52 Last Admin: 12/10/21 08:04 Dose: 40 mg Documented by: Rosuvastatin Calcium (Rosuvastatin Calcium 20 Mg Tab) 20 mg PO DAILY [facility] Stop: 01/06/22 08:59 Last Admin: 12/10/21 08:04 Dose: 20 mg Documented by: Simethicone (Simethicone 80 Mg Chew) 80 mg PO Q6H PRN PRN Reason: Gas or Constipation Stop: 01/07/22 22:30 Last Admin: 12/09/21 19:48 Dose: 80 mg Documented by: Umeclidinium [place] (Umeclidinium [place] 62.5mcg/Blister 7 Puffs/Inhaler) 1 puffs INH DAILY [facility] Stop: 01/08/22 15:59 Last Admin: 12/10/21 08:05 Dose: 1 puffs Documented by:
[2021-12-10] MEDS: HEPARIN SODIUM/DEXTROSE 25,000 UNITS/500 ML BAG IV SCH (13:01)
[2021-12-10] MEDS: oxyCODONE HCL IR 5 MG TAB (IMMEDIATE RELEASE) PO PRN ×2 (13:05→22:52)
[2021-12-10 14:33] LABS: Partial Thromboplastin Ratio 1.7; Partial Thromboplastin Time 44.1 Seconds (21.0-31.0)
[2021-12-10 21:06] LABS: Partial Thromboplastin Ratio 1.7
[2021-12-10 21:12] LABS: Partial Thromboplastin Time 45.6 Seconds (21.0-31.0)
[2021-12-11 04:05] LABS: Basophils # (auto) 0.02 K/uL (0-0.2); Basophils % (auto) 0.2 %; Eosinophils # (auto) 0.36 K/uL (0-0.5); Eosinophils % (auto) 3.7 %; Hematocrit (blood only) 36.8 % (37-47); Hemoglobin 12.5 g/dL (12.0-16.0); Immature Granulocytes # (auto) 0.04 K/uL (0.00-0.02); Immature Granulocytes % (auto) 0.4 %; Lymphocytes # (auto) 2.09 K/uL (1.2-3.4); Lymphocytes % (auto) 21.3 %; Mean Corpuscular Hemoglobin 30.6 pg (25-34); Mean Platelet Volume 9.8 fL (7.4-10.4); Monocytes % (auto) 6.1 %; Neutrophils # (auto) 6.72 K/uL (1.4-6.5); Neutrophils % (auto) 68.3 %; Platelet Count 231 K/uL (130-400); RDW Coefficient of Variation 13.1 % (11.5-14.5); RDW Standard Deviation 43.5 fL (36.4-46.3); Red Blood Count 4.09 M/uL (4.2-5.4); White Blood Count 9.83 K/uL (4.8-10.8)
[2021-12-11 04:25] LABS: BUN Creatinine Ratio 17.7 (10-20); Calcium 8.8 mg/dl (8.5-10.1); Creatinine Clr Calc Pharmacy 65.2 ml/min; Est GFR (African American) 103.7 ml/min; Est GFR (Non-African American) 89.5 ml/min; Potassium 3.5 mmol/L (3.5-5.1)
[2021-12-11 04:35] LABS: Partial Thromboplastin Ratio 2.1
[2021-12-11 04:37] LABS: Partial Thromboplastin Time 54.2 Seconds (21.0-31.0)
[2021-12-11] MEDS ORDERED: APIXABAN 5 MG TABLET PO SCH (09:00)
[2021-12-11] MEDS: MULTIVITAMIN TAB PO SCH (09:08)
[2021-12-11] MEDS: AMOXICILLIN/CLAVULANATE 875 MG TAB PO SCH (09:09)
[2021-12-11] MEDS: ESCITALOPRAM OXALATE 10 MG TAB PO SCH (09:09)
[2021-12-11] MEDS: PANTOprazole 40 MG TAB PO SCH (09:11)
[2021-12-11] MEDS: LIDOCAINE 5% 1 PATCH TD SCH (09:12)
[2021-12-11] MEDS: ROSUVASTATIN CALCIUM 20 MG TAB PO SCH (09:12)
[2021-12-11] MEDS: UMECLIDINIUM BROMIDE 62.5MCG/BLISTER 7 PUFFS/INHALER INH SCH (09:14)
[2021-12-11] MEDS: HEPARIN SODIUM/DEXTROSE 25,000 UNITS/500 ML BAG IV SCH (09:24)
[2021-12-11] MEDS: oxyCODONE HCL IR 5 MG TAB (IMMEDIATE RELEASE) PO PRN (09:33)
--- NOTE | 2021-12-11 14:37 | Discharge Summary ---
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 Also with a family history of blood clot that killed her mother at the age of 48 yo, was present in her sister and her nephew. With ongoing chest pain and BAKER, cont heparin for now. Try to use the oral narcotics, but IV available if needed. Has been using parenteral narcotics overnight. Cont transdermal lidocaine patch for now as she says this help her. Plan to transition to apixaban when more improved. Out patient follow-up with hematology recommended. (2) Bilateral pneumonia: dependent consolidation at the lung bases bilaterally. Patient reported productive cough on admission with yellowish phlegm. Given and improved on a short course of Augmentin. (3) DVT (deep venous thrombosis): 2. History of depression: chronic, stable, Continue Lexapro per home regimen. 3. Hyperlipidemia: chronic, stable. Continue statin per home regimen. 4. Gastroesophageal reflux disease: chronic, stable, Continue omeprazole per home regimen. 5. Irritable bowel syndrome: Continue with dicyclomine p.r.n. 6. Tobacco use disorder: Cont counseling to quit altogether. 7. Deep venous thrombosis prophylaxis: IV heparin. Dispo-to home in 1-2 days Full Code DO Ashley Ernandez Hospitalist Discharge Plan Discharge Items Patient Disposition: Home - Self-Care Reason For Visit: SOB Discharge Diagnosis: Acute bilateral pulmonary embolism bilateral pneumonia Acute right leg DVT Condition on Discharge: Good Activity: Resume your previous activity Non-emergency contact: Primary Care Provider Call non-emergency contact if: you have any medication questions, your symptoms worsen, your pain is not controlled and your pain is worsening Follow-up/Referrals: Curtis Armenta MD [Primary Care Provider] - (Date & Time 12/17/2021 8:40 AM Provider Candy Richmond PA-C Department Family Medicine [facility] ) Diet: Regular Addtl Attending Provider Instructions: Please take all medications as instructed. You are being restarted on APIXABAN for treatment of your blood clots. Please note you should take 10mg twice daily for the first week, followed by 5mg twice daily for at least 3-6 months. You will be ordered the first month and should follow up with your primary care physician for additional refills. You are being give a narcotic pain pill to take only for severe pain as needed. This is NOT a scheduled or required medication. Tylenol (acetaminophen) is fine to take for mild pain, however, please limit you amount to 3000mg in 24 hours. Please avoid all NSAIDs (non-steroidal anti-inflammatory drugs) such as Ibuprofen or Aleve so as not to increase your bleeding risk. Please follow-up with your primary care physician within one week of discharge to ensure you are still doing well after returning home and to review new medications and expectations. You may want to conisder a referral to Hematology/Oncology for further workup on the cause of your recurrent blood clots, which may be genetic given your family history. You were given a short course of antibiotics while here for possible pneumonia vs bronchitis. Please complete this short course as given on discharge and follow-up with primary care regarding how you are feeling. You underwent a "two step" test on discharge day to show you don't require oxygen supplementation to go home. However, if you experience worsening shortness of breath, fever, chest pain that is uncontrolled or new, or other concerning symptom, please seek immediate medical attention. It was a pleasure taking care of you! Please call if you have any questions or problems. You can reach a [facility] hospitalist on duty at [facility] 24 hours a day by calling [phone]. Take care of yourself. Sheron Rdz, [facility] Hospitalist Pending Studies at Discharge: No Stand-Alone Forms: My [facility] Medications and DC Order Prescriptions: New amoxicillin-pot clavulanate 875-125 mg tablet 1 tab PO BID Qty: 6 RF: 0 Eliquis 5 mg (74 tabs) tablets,dose pack See Rx Instructions .ROUTE .COMPLEX Qty: 74 RF: 0 lidocaine 5 % Adhesive Patch,Medicated 1 patch transdermal QAM Qty: 15 RF: 0 Continued multivitamin Tablet 1 tab PO QAM RF: 0 dicyclomine 20 mg tablet 20 mg PO Q6H RF: 0 omeprazole 20 mg capsule,delayed release(DR/EC) 20 mg PO BID RF: 0 escitalopram oxalate 10 mg tablet 10 mg PO DAILY RF: 0 rosuvastatin 20 mg tablet 20 mg PO DAILY RF: 0 Admission Data Admit Date/Time: 12/06/21 20:17 Attending Provider: Sheron Rdz Admit Provider: Gunner Smith Primary Care Provider: Curtis Armenta Other Providers: Delmy Ann ; Puja Paniagua
--- NOTE | 2021-12-17 18:35 | Hospitalist Progress Note ---
Date of Service December 17, 2021 delayed entry date of service 12/08/21 Assessment & Plan (1) Bilateral pulmonary embolism: Plan: ASSESSMENT AND PLAN: This is a 71-year-old female who presents with bilateral pulmonary embolism. 1. Acute Bilateral pulmonary embolism history of left lower extremity deep venous thrombosis about 8 months ago Status post Eliquis x 6 months Apparently unprovoked DVT 11/27 (+) right tibial vein deep venous thrombosis Presenting now with chest pain, shortness of breath CT chest: 1. There are segmental and subsegmental pulmonary emboli within branches of the right upper, right lower, and left lower lobe pulmonary arteries. 2. A focus of wedge-shaped subpleural consolidation in the right upper lobe is typical for a pulmonary infarct. 3. Dependent consolidation is seen at both lung bases, right greater than left. This could represent atelectasis, an infectious/inflammatory pneumonitis, and/or additional foci of pulmonary infarct. 4. No pleural effusion is identified. Patient remains on 2-3 L of oxygen hemodynamically stable Continue IV heparin drip Pain control, incentive spirometry Pulmonary service consulted, appreciate recommendations 2. History of depression: Continue Lexapro. 3. Hyperlipidemia: Continue statin. 4. Gastroesophageal reflux disease: Continue omeprazole. 5. Irritable bowel syndrome: Continue with dicyclomine p.r.n. 6. Tobacco use disorder: Needs counseling. 7. Deep venous thrombosis prophylaxis: IV heparin. Disposition Anticipate discharge to home medically stable PT/OT evaluation ordered Admission and Anticipated Discharge Date Admission Date: December 06, 2021 Subjective ff up for BL PE, etc seen resting in bed, not in distress states chest pain is still significant still has some dyspnea no cough, hemoptysis or any signs of bleeding no other symptoms Review of Systems Review of Systems: all noted and negative except for above Physical Exam Physical Exam: General- oriented x 3, not in distress, speaks in sentences with no effort or accessory muscle use Eyes- anicteric Neck- no JVD Lungs- clear BS BL Heart- normal rate, regular rhythm; no murmurs Abdomen- normal bowel sounds, nondistended, soft, nontender Extremities- no pretibial edema, no calf tenderness Neuro- alert, oriented x 3; no gross focal neurologic deficits Skin- warm & dry
== END 2021-12-11 15:21 | disposition home or self-care (01) | DRG 175 ==
LOC: ED 16:17 → SUATTDRO 20:17 → 2N 20:17
DX: Z83.3 Family history of diabetes mellitus; J18.9 Pneumonia, unspecified organism; I82.441 Acute embolism and thrombosis of right tibial vein; K21.9 Gastro-esophageal reflux disease without esophagitis; Z83.2 Family history of diseases of the blood and blood-forming organs and certain disorders involving the immune mechanism; J44.0 Chronic obstructive pulmonary disease with (acute) lower respiratory infection; M15.9 Polyosteoarthritis, unspecified; K58.0 Irritable bowel syndrome with diarrhea; F17.210 Nicotine dependence, cigarettes, uncomplicated; Z86.718 Personal history of other venous thrombosis and embolism; J96.01 Acute respiratory failure with hypoxia; I26.94 Multiple subsegmental thrombotic pulmonary emboli without acute cor pulmonale